=== PATIENT | female | born 1990 | race Caucasian/White ===

== ENCOUNTER 2016-11-19 10:25 | Emergency (ER) | payer OTHER ==
[~2016-11-19] VITALS: Ht 160 cm; Wt 67.8 kg
[2016-11-19 10:33] VITALS: Ht 160 cm; Wt 67.8 kg
--- NOTE | 2016-11-19 10:52 | ERD ---
ER Documentation Chief Complaint Date/Time DATE: 11/19/16 TIME: 10:51 Chief Complaint pregtnant with bleeding today HPI 26-year-old female is approximately 7 weeks is [id number] comes in with vaginal bleeding that has been going on for approximately 5 days. Patient reports that he said it was slight bleeding and has now become approximately 2 pads per day. She reports that she did have some cramping pain in the pelvic region going to the back. She has not had any fevers, chills, dizziness or syncope. Her last menstrual period was on October 01, 2016. She did have an appointment this morning with her OB who is Dr. Figueroa but she was told to go the emergency room due to her symptoms. ROS All systems reviewed and are negative except as per history of present illness. Physical Exam Vitals Vital Signs Date Time Temp Pulse Resp B/P Pulse Ox O2 Delivery O2 Flow Rate FiO2 11/19/16 10:33 98.0 67 18 105/67 99 Physical Exam General: Well-developed, well-nourished. The patient appears in no acute distress. HEENT: Head is normocephalic, atraumatic. No scleral icterus. Neck: Supple. Nontender. Lungs: Clear to auscultation. Normal air movement. Heart: Regular rate and rhythm. S1 and S2 are normal. No murmurs, gallops, or rubs. Abdomen: Soft, nontender, nondistended. Bowel sounds are normoactive. Genitourinary: Os is closed, there is scant vaginal bleeding. No CMT tenderness per Extremities: No clubbing or cyanosis. Normal pulses. Moving extremities x 4. No weakness. Neurologic: Alert and oriented 3. No focal deficits. Skin: Normal turgor. No rash or lesions. Result Diagram: 11/19/16 1106 Results 24 hrs Laboratory Tests Test 11/19/16 10:54 11/19/16 11:06 Urine Color LT. YELLOW Urine Clarity CLEAR Urine pH 7.5 Urine Specific [place] 1.020 Urine Ketones NEGATIVE Urine Nitrite NEGATIVE Urine Bilirubin NEGATIVE Urine Urobilinogen 0.2 E.U./dL Urine Leukocyte Esterase NEGATIVE Urine Microscopic RBC 2-5/HPF Urine Microscopic WBC 2-5/HPF Urine Squamous Epithelial Cells FEW Urine Bacteria FEW Urine Hemoglobin 3+ Urine Glucose NEGATIVE% Urine Total Protein NEGATIVE White Blood Count 7.410^3/ul Red Blood Count 4.8910^6/ul Hemoglobin 14.8g/dl Hematocrit 44.7% Mean Corpuscular Volume 91.4fl Mean Corpuscular Hemoglobin 30.3pg Mean Corpuscular Hemoglobin Concent 33.1g/dl Red Cell Distribution Width 13.2% Platelet Count 45189^3/UL Mean Platelet Volume 11.6fl Neutrophils % 72.5% Lymphocytes % 15.3% Monocytes % 10.1% Eosinophils % 1.1% Basophils % 0.7% Nucleated Red Blood Cells % 0.0/100WBC Neutrophils # 5.410^3/ul Lymphocytes # 1.110^3/ul Monocytes # 0.810^3/ul Eosinophils # 0.110^3/ul Basophils # 0.110^3/ul Nucleated Red Blood Cells # 0.010^3/ul Beta HCG, Quantitative 3206.4mIU/ml DIAGNOSTIC IMAGING REPORT Patient: VINNY ABBOTT : 1990 Age: 26 Sex: F MR #: [id number] DOS: 11/19/16 0000 Ordering MD: YESENIA HUTCHISON PA-C Location: [facility] Room/Bed: PROCEDURE: OBSTETRICAL ULTRASOUND WITH ENDOVAGINAL IMAGES CLINICAL INDICATION: Vaginal Bleed () TECHNIQUE: Multiple sonographic images of the pelvis were obtained utilizing a transabdominal and endovaginal technique. The images were reviewed on a PACS workstation. COMPARISON: None. LMP: 10/01/2016 Gestational age by LMP: 7 weeks, 0 days FINDINGS: The uterus measures 7.6 x 4.3 x 5.3 cm. There is thickening of the endometrium to 14 mm. There is no evidence of an intrauterine . The right ovary measures 3.3 x 1.6 x 2.1 cm. The left ovary measures 2.7 x 1.9 x 2.0 cm. There is normal vascular flow in both ovaries. No significant ovarian lesions are seen. No significant pelvic free fluid is identified. IMPRESSION: Thickening of the endometrium to 14 mm without evidence of an intrauterine . Findings may be due to an early intrauterine although an ectopic and early demise cannot be entirely excluded, especially in the setting of vaginal bleeding. Short-term follow-up ultrasound and serial Beta HCG measurements are recommended for further evaluation. Bilateral ovaries and adnexa are unremarkable. RPTAT: EE Davis Cotto Physician Date Time Electronically viewed and signed by Davis Cotto Physician on 11/19/2016 11:29 RA/ CC: YESENIA HUTCHISON PA-C Procedures/MDM 26 yo female comes in with vaginal bleeding, likely miscarriage. There is a thickened endometrium seen on the ultrasound today, there is no evidence of an intrauterine , no adnexal masses. Suspicion for ectopic is low, she has no CMT tenderness, no adnexal masses, she is hemodynamically stable. She has been bleeding for approximately a week, prior it was as heavy as a menstrual cycle as she reports. There was no previous hCG or ultrasound to compare with, therefore ectopic cannot be excluded and this was discussed at length with the patient and ER return precautions were also discussed with her, and she is to recheck her hCG in 1-2 days. Departure Diagnosis: Primary Impression: Vaginal bleeding Condition: Good YESENIA HUTCHISON PA-C Nov 19, 2016 10:52
--- NOTE | 2016-11-19 11:29 | RADRPT ---
PROCEDURE: OBSTETRICAL ULTRASOUND WITH ENDOVAGINAL IMAGES CLINICAL INDICATION: Vaginal Bleed () TECHNIQUE: Multiple sonographic images of the pelvis were obtained utilizing a transabdominal and endovaginal technique. The images were reviewed on a PACS workstation. COMPARISON: None. LMP: 10/01/2016 Gestational age by LMP: 7 weeks, 0 days FINDINGS: The uterus measures 7.6 x 4.3 x 5.3 cm. There is thickening of the endometrium to 14 mm. There is no evidence of an intrauterine . The right ovary measures 3.3 x 1.6 x 2.1 cm. The left ovary measures 2.7 x 1.9 x 2.0 cm. There is no rmal vascular flow in both ovaries. No significant ovarian lesions are seen. No significant pelvic free fluid is identified. IMPRESSION: Thickening of the endometrium to 14 mm without evidence of an intrauterine . Findings ma y be due to an early intrauterine although an ectopic and early demise can not be entirely excluded, especially in the setting of vaginal bleeding. Short-term follow-up ultra sound and serial Beta HCG measurements are recommended for further evaluation. Bilateral ovaries and adnexa are unremarkable. RPTAT: EE Physician Luis Date Time Electronically viewed and signed by Physician Luis on 11/19/2016 11:29 /
[2016-11-19 11:42] LABS: ADD SCAN DIFF NO
[2016-11-19 11:46] LABS: BASOPHIL # 0.1 10^3/ul (0.0-0.1); BASOPHILS % 0.7 % (0.0-2.0); EOSINOPHILS # 0.1 10^3/ul (0.0-0.5); EOSINOPHILS % 1.1 % (0.0-7.0); HEMATOCRIT 44.7 % (37.0-47.0); HEMOGLOBIN 14.8 g/dl (12.0-16.0); LYMPHOCYTES # 1.1 10^3/ul (0.8-2.9); LYMPHOCYTES % 15.3 % (15.0-51.0); MEAN CORPUSCULAR HEMOGLOBIN 30.3 pg (29.0-33.0); MEAN CORPUSCULAR HGB CONC 33.1 g/dl (32.0-37.0); MEAN CORPUSCULAR VOLUME 91.4 fl (82.0-101.0); MEAN PLATELET VOLUME 11.6 fl (7.4-10.4); MONOCYTE # 0.8 10^3/ul (0.3-0.9); MONOCYTES % 10.1 % (0.0-11.0); NEUTROPHIL # 5.4 10^3/ul (1.6-7.5); NEUTROPHILS % 72.5 % (39.0-77.0); PLATELET COUNT 211 10^3/UL (140-415); RED BLOOD COUNT 4.89 10^6/ul (4.20-5.40); RED CELL DISTRIBUTION WIDTH 13.2 % (11.5-14.5); WHITE BLOOD COUNT 7.4 10^3/ul (4.8-10.8)
[2016-11-19 11:52] LABS: ADD UMIC YES; UR BILIRUBIN (Dip) NEGATIVE (NEGATIVE); UR BLOOD (Dip) 3+ (NEGATIVE); UR CLARITY CLEAR (CLEAR); UR COLOR LT. YELLOW (YELLOW); UR GLUCOSE (Dip) NEGATIVE (NEGATIVE); UR KETONES (Dip) NEGATIVE (NEGATIVE); UR LEUKOCYTE ESTERASE (Dip) NEGATIVE (NEGATIVE); UR NITRITE (Dip) NEGATIVE (NEGATIVE); UR TOTAL PROTEIN (Dip) NEGATIVE (NEGATIVE); UR UROBILINOGEN (Dip) 0.2 E.U./dL (0.1-1.0)
[2016-11-19 12:18] LABS: UR SQUAMOUS EPITHELIAL CELL FEW
[2016-11-19 12:19] LABS: UR BACTERIA FEW
[2016-11-19 13:51] VITALS: BP 112/80; PULSE 78; RESP 18; TEMP 98.2
== END 2016-11-19 13:51 | disposition home or self-care (01) ==
LOC: FTE 10:25
DX: O20.9 Hemorrhage in early pregnancy, unspecified (principal); R10.2 Pelvic and perineal pain; Z3A.01 Less than 8 weeks gestation of pregnancy
CPT/HCPCS: 36415; 76801; 76817; 81001; 84702; 85025; 86900; 86901

== ENCOUNTER 2016-11-21 18:38 | Emergency (ER) | payer OTHER ==
[~2016-11-21] VITALS: Ht 165.1 cm; Wt 63.0 kg
[2016-11-21 18:41] VITALS: Ht 165.1 cm; Wt 63.0 kg
[2016-11-21 19:28] LABS: ADD SCAN DIFF NO
[2016-11-21 19:29] LABS: BASOPHIL # 0.1 10^3/ul (0.0-0.1); BASOPHILS % 0.7 % (0.0-2.0); EOSINOPHILS # 0.1 10^3/ul (0.0-0.5); EOSINOPHILS % 1.4 % (0.0-7.0); HEMATOCRIT 41.8 % (37.0-47.0); HEMOGLOBIN 14.1 g/dl (12.0-16.0); LYMPHOCYTES # 1.6 10^3/ul (0.8-2.9); LYMPHOCYTES % 23.4 % (15.0-51.0); MEAN CORPUSCULAR HEMOGLOBIN 30.5 pg (29.0-33.0); MEAN CORPUSCULAR HGB CONC 33.7 g/dl (32.0-37.0); MEAN CORPUSCULAR VOLUME 90.5 fl (82.0-101.0); MEAN PLATELET VOLUME 11.1 fl (7.4-10.4); MONOCYTE # 0.5 10^3/ul (0.3-0.9); MONOCYTES % 7.3 % (0.0-11.0); NEUTROPHIL # 4.7 10^3/ul (1.6-7.5); NEUTROPHILS % 66.9 % (39.0-77.0); PLATELET COUNT 214 10^3/UL (140-415); RED BLOOD COUNT 4.62 10^6/ul (4.20-5.40)
[2016-11-21 19:32] LABS: ADD UMIC YES; URINE BILIRUBIN (Dip) NEGATIVE (NEGATIVE); URINE BLOOD (Dip) 3+ (NEGATIVE); URINE COLOR LT. YELLOW (YELLOW); URINE GLUCOSE (Dip) NEGATIVE (NEGATIVE); URINE KETONES (Dip) NEGATIVE (NEGATIVE); URINE LEUKOCYTE ESTERASE (Dip) NEGATIVE (NEGATIVE); URINE NITRITE (Dip) NEGATIVE (NEGATIVE); URINE TOTAL PROTEIN (Dip) NEGATIVE (NEGATIVE); URINE UROBILINOGEN (Dip) 0.2 E.U./dL (0.1-1.0)
--- NOTE | 2016-11-21 19:34 | ERD ---
ER Documentation Chief Complaint Date/Time DATE: 11/21/16 TIME: 19:33 Chief Complaint 7 weeks , vaginal bleeding HPI 26-year-old female who is 1 comes in for recheck, states that she should be about 7 weeks because of vaginal bleeding for approximately a week now. Patient's previous visit was 2 days ago, there is no evidence of intrauterine . She was advised to recheck her hCG in 1-2 days. She states that she does continue to have moderate vaginal bleeding, however no pelvic pain. She denies fevers, chills, chest pain, dizziness or shortness of breath. ROS All systems reviewed and are negative except as per history of present illness. Allergies Allergies: Coded Allergies: No Known Allergy (Unverified , 11/21/16) PMhx/Soc Medical and Surgical Hx: pt denies Medical Hx, pt denies Surgical Hx Hx Alcohol Use: No Hx Substance Use: No Hx Tobacco Use: No Smoking Status: Never smoker Physical Exam Vitals Vital Signs Date Time Temp Pulse Resp B/P Pulse Ox O2 Delivery O2 Flow Rate FiO2 11/21/16 18:41 98.3 67 20 113/69 98 Physical Exam General: Well-developed, well-nourished. The patient appears in no acute distress. HEENT: Head is normocephalic, atraumatic. No scleral icterus. . Neck: Supple. Nontender. Lungs: Clear to auscultation. Normal air movement. Heart: Regular rate and rhythm. S1 and S2 are normal. No murmurs, gallops, or rubs. Abdomen: Soft, nontender, nondistended. Bowel sounds are normoactive. Extremities: No clubbing or cyanosis. Normal pulses. Moving extremities x 4. No weakness. Neurologic: Alert and oriented 3. No focal deficits. Skin: Normal turgor. No rash or lesions. Result Diagram: 11/21/16 191 Results 24 hrs Laboratory Tests Test 11/21/16 19:06 11/21/16 19:10 Urine Color LT. YELLOW Urine Clarity CLEAR Urine pH 7.5 Urine Specific [place] 1.010 Urine Ketones NEGATIVE Urine Nitrite NEGATIVE Urine Bilirubin NEGATIVE Urine Urobilinogen 0.2 E.U./dL Urine Leukocyte Esterase NEGATIVE Urine Microscopic RBC 0-2/HPF Urine Microscopic WBC 0-2/HPF Urine Squamous Epithelial Cells FEW Urine Hemoglobin 3+ Urine Glucose NEGATIVE% Urine Total Protein NEGATIVE White Blood Count 7.010^3/ul Red Blood Count 4.6210^6/ul Hemoglobin 14.1g/dl Hematocrit 41.8% Mean Corpuscular Volume 90.5fl Mean Corpuscular Hemoglobin 30.5pg Mean Corpuscular Hemoglobin Concent 33.7g/dl Red Cell Distribution Width 13.0% Platelet Count 82300^3/UL Mean Platelet Volume 11.1fl Neutrophils % 66.9% Lymphocytes % 23.4% Monocytes % 7.3% Eosinophils % 1.4% Basophils % 0.7% Nucleated Red Blood Cells % 0.0/100WBC Neutrophils # 4.710^3/ul Lymphocytes # 1.610^3/ul Monocytes # 0.510^3/ul Eosinophils # 0.110^3/ul Basophils # 0.110^3/ul Nucleated Red Blood Cells # 0.010^3/ul Beta HCG, Quantitative 712.6mIU/ml Procedures/MDM MDM: 26-year-old female comes in continuing vaginal bleeding for approximately a week now. Patient was seen here 2 days ago and her beta hCG was 3206, today it is about 712. It has decreased by half each day, consistent with a miscarriage. Pelvic ultrasound was done previously, there was a thickened endometrium however no evidence of intrauterine , no adnexal masses, no retained products. She does continue active bleeding, this is likely expected given her history of recent miscarriage. She does not have any fever or signs of infection. CBC was repeated, there is no evidence of anemia. She is hemodynamically stable, and no evidence of ectopic ovarian torsion , anemia related, patient is safe for outpatient management. Departure Diagnosis: Primary Impression: Miscarriage Condition: YESENIA Franco PA-C Nov 21, 2016 19:34
[2016-11-21 19:38] LABS: SQUAMOUS EPITHELIAL CELL,UR FEW; URINE RBCS 0-2 /HPF (0)
[2016-11-21 20:35] VITALS: BP 115/60; PULSE 57; RESP 16; TEMP 98.4
== END 2016-11-21 20:36 | disposition home or self-care (01) ==
LOC: FTE 18:38
DX: O03.9 Complete or unspecified spontaneous abortion without complication (principal)
CPT/HCPCS: 36415; 81001; 84702; 85025; 99283